=== PATIENT | female | born 1970 | race Caucasian/White ===

== ENCOUNTER → 2023-08-28 10:55 | Outpatient (REF) | payer BC, SELFPAY | LOC: WDC 10:55 | PROVIDERS: ATTENDING PHYSICIAN Family Medicine | DX: Z12.31 Encounter for screening mammogram for malignant neoplasm of breast (principal) | CPT/HCPCS: 77063; 77067 ==

== ENCOUNTER → 2023-10-04 07:14 | Outpatient (REF) | payer BC, SELFPAY | LOC: RAD 07:14 | PROVIDERS: ATTENDING PHYSICIAN Internal Medicine Cardiovascular Disease; FAMILY PHYSICIAN Family Medicine | DX: I10 Essential (primary) hypertension (principal) | CPT/HCPCS: 76770 ==

== ENCOUNTER → 2024-03-14 08:07 | Outpatient (REF) | payer BC, SELFPAY | LOC: RAD 08:07 | PROVIDERS: ATTENDING PHYSICIAN Nurse Practitioner Family; FAMILY PHYSICIAN Family Medicine | DX: N95.0 Postmenopausal bleeding (principal) | CPT/HCPCS: 76830; 76856 ==

== ENCOUNTER 2024-08-28 13:49 | Emergency (ER) | payer BC, SELFPAY ==
[2024-08-28 14:15] VITALS: BP 120/83
--- NOTE | 2024-08-28 16:57 | ED.GENMED ---
History of Present Illness
General
Chief Complaint: Female Client Professional/Gu symptoms
Source: patient and family
Time Seen by Provider: 08/28/24 16:45
History of Present Illness
History of Present Illness:
54-year-old female presents emergency department with complaints of swelling in the vaginal area that she says started as a 'bump' that she thought was a cyst or inflamed gland, but is gotten progressively more swollen and painful in the past week.
She notes a small amount of drainage. She denies vaginal discharge, urinary retention, fever, chills, abdominal pain, nausea, vomiting, or other complaints. Patient is having normal bowel movements and normal urinary output. Patient is not a
diabetic.
Past History
Past History
ED Past Medical History: HTN, Hypercholesterolemia and Psychiatric
Social History
Tobacco: Smoker
Alcohol: Occasional
Drug: None
Living: with family
Phy Exam
Physical Exam
Physical Exam:
GENERAL: Alert , in no apparent distress
EYE: pupils equal and reactive
NECK: Supple, no significant adenopathy.
ENT: o/p clr, mmm.
CARDIAC: Regular rate and rhythm .
LUNGS: Clear breath sounds bilaterally, no acute respiratory distress, no wheezes/rales/rhonchi
ABDOMEN: Soft, without focal tenderness, no r/g, no cvat
NEUROLOGICAL: Alert and oriented, no focal neuro deficits
SKIN: Warm and dry, skin intact.
MUSCULOSKELETAL: No edema, well perfused.
PSYCH: Normal and appropriate interaction.
: L labia noted swelling/redness, ttp and mild fluctuance measuring approximately 4 cm, no active drdainage but suspect area where draining now closed over. No streaking/crepitus/blistering.
Course
Orders/Labs/Results
Orders:
Orders
08/28/24 18:43
Morphine Sulfate 10 mg .ROUTE .STK-MED ONE
08/28/24 18:45
Morphine Sulfate 6 mg IV STAT STA
08/28/24 20:01
Clindamycin HCl [Cleocin] 300 mg PO NOW STA
Vital Signs
Initial and Last Documented VS:
Initial Vital Signs
Temp Pulse Resp BP Pulse Ox
98.1 F 86 16 120/83 98
08/28/24 14:15 08/28/24 14:15 08/28/24 14:15 08/28/24 14:15 08/28/24 14:15
Last Documented Vital Signs
Temp Pulse Resp BP Pulse Ox
98.1 F 82 16 100/88 96
08/28/24 14:15 08/28/24 18:00 08/28/24 18:00 08/28/24 18:00 08/28/24 18:00
*Critical Care Note
Total Time (30-74mins, 75-104mins- exclusive of procedures): Not Applicable
Update Note
Update Note:
Patient presents to the Emergency Department with __left labia swelling
Number and Complexity of Problems Addressed at the Encounter
� Chronic conditions affecting care:
� Acute Exacerbation and/or Progression of Chronic Illness:
� Differential Diagnosis includes: Not limited to cellulitis, Bartholin's abscess, cyst, etc. etc.
Amount and/or Complexity of Data to be Reviewed and Analyzed
� I performed an independent evaluation of and my interpretation is:
EKG:
CT:
Xrays:
Laboratory Studies:
Other:
� Review of other/old records reveals:
� Clinical information was obtained by an independent historian:
� Prescriptions/Medications Considered but not given:
� Further testing considered but not performed:
Risk of Complications and/or Morbidity or Mortality of Patient Management
� Social determinants of health affecting care:
� Discussion with other providers (PCP, Hospitalists, Consultants, etc): After local anesthesia with lido with epi, incision was made measuring approximately 1 cm with small amount of purulent material expressed, irrigated with
saline, left open for continued drainage, discussed with patient importance of follow-up and reasons to return to the ER.
� Escalation of care including admission/observation vs risk of discharge considered: Case discussed with Dr. Martinez aware of presentation here, recommends clindamycin 300 mg every 8 hours x 7 days and will see in follow-up.
ED Attending Note
-
Portions of this chart may have been created with voice recognition software.� Occasional wrong word or��sound alike� substitutions may have occurred due to the inherent limitations of voice recognition software.
Discharge Plan
Departure
Patient Disposition: Home (Routine Discharge)
Date of Disposition: 08/28/24
Time of Disposition: 20:02
Patient with high blood pressure during this ER visit?: Yes
Condition: Good
Discharge Problem:
labial cellulitis and abscess
Instructions: Abscess incision and drainage - ED discharge instructions, BLOOD PRESSURE
Prescriptions:
New
clindamycin HCl 300 mg capsule
300 mg PO TID Qty: 21 0RF
No Action
cyclobenzaprine 10 MG tablet
10 mg PO TIDPRN PRN (Reason: spasm) Qty: 12 0RF
prednisone 10 MG tablet
10 mg PO .TAPER Qty: 30 0RF
Rx Instructions:
Take 40mg daily x3days, 30mg daily x3days, 20mg daily x3days, 10mg daily x3days.
hydrocodone-acetaminophen 1 TABLET tablet
1 tab PO Q4HPRN PRN (Reason: pain) Qty: 12 0RF
Referrals:
Anthony Leyva MD [Family Provider] -
Ashley Nunes MD [Active] - Follow up in 2-3 days
Activity Restrictions/Additional Instructions:
PLEASE SEE YOUR [employer] MECH[employer]IC DOCTOR AND CLOSE FOLLOW-UP IN THE NEXT FEW DAYS. IF YOU DEVELOP INCREASING OR NEW SWELLING, PAIN, OR REDNESS, DEVELOP A FEVER, VOMITING, GET WORSE, DO NOT GET BETTER, OR OTHER WORRISOME SIGNS, PLEASE RETURN TO THE ER IMMEDIATELY!
Interventions
Interventions:
*Risk Screen - Suicide Last Done: 08/28/24 17:35
*General Assessment Last Done: 08/28/24 17:35
*Neglect/Abuse Screening Last Done: 08/28/24 17:35
ED- Fall Risk Assessment Last Done: 08/28/24 17:35
*ED COVID-19 Vaccine History Last Done: 08/28/24 17:35
ED-Female Genitourinary Assessment Last Done: 08/28/24 17:36
Discharge Date and Time
Print Language: CHADIAN
--- NOTE | 2024-08-28 17:21 | EDRN ---
Pt moved from protocol #2 to room #14 at this time for cyst drainage per request of Dr. Hernandez.
[2024-08-28 17:38] VITALS: BP 123/80
[2024-08-28 17:40] VITALS: BMI 25.9
[2024-08-28 18:00] VITALS: BP 100/88
[2024-08-28] MEDS: MORPHINE SULFATE 6 MG IV (18:46)
[2024-08-28 19:00] VITALS: BP 129/84
[2024-08-28 20:00] VITALS: BP 101/62
[2024-08-28] MEDS: CLEOCIN 300 MG PO (20:23)
[2024-08-28 20:50] VITALS: BP 100/67
== END 2024-08-28 20:50 | disposition home or self-care (01) ==
LOC: EMR 13:49
PROVIDERS: EMERGENCY PHYSICIAN Emergency Medicine; FAMILY PHYSICIAN Family Medicine
DX: N76.4 Abscess of vulva (principal); N76.2 Acute vulvitis; I10 Essential (primary) hypertension; F17.200 Nicotine dependence, unspecified, uncomplicated
CPT/HCPCS: 99284; 96374